=== PATIENT | male | born 1935 | race Caucasian/White ===

== ENCOUNTER 2021-11-03 20:08 | Emergency (ER) | payer OTHER ==
[~2021-11-03] VITALS: Ht 182.9 cm; Wt 73.5 kg
[2021-11-03] MEDS ORDERED: FLOMAX0.4 MG PO (20:39)
[2021-11-03] MEDS ORDERED: LIPITOR10 MG PO (20:39)
[2021-11-03] MEDS ORDERED: LISINOPRIL20 MG PO (20:40)
[2021-11-03] MEDS ORDERED: PROSCAR 5MG TABL5 M1 PO (20:40)
[2021-11-03] MEDS ORDERED: HYDROXYZINE HCL10 M2 PO (20:41)
[2021-11-03 21:29] LABS: ABSOLUTE EOSINOPHILS 0.1 thou/uL (0.0-0.7); ABSOLUTE LYMPHOCYTES 1.4 thou/uL (0.8-5.3); ABSOLUTE MONOCYTES 0.5 thou/uL (0.0-1.2); ABSOLUTE NEUTROPHILS 5.6 thou/uL (1.6-8.1); BASOPHILS 0.3 %; HEMATOCRIT 39.2 % (42.0-52.0); HEMOGLOBIN 13.1 gm/dL (14.0-18.0); LYMPHOCYTES 18.4 %; MCH 33.4 pg (26.0-34.0); MCHC 33.5 g/dL (28.0-37.0); MCV 99.6 fL (80.0-100.0); MONOCYTES 6.2 %; MPV 8.2 fl. (7.2-11.1); NUCLEATED RBCS 0 /100WBC; PLATELET COUNT* 172 thou/uL (150-400); POLYS 74.1 %; RBC 3.94 mil/uL (4.50-6.00); WBC 7.6 thou/uL (4.0-11.0)
[2021-11-03 21:42] LABS: CALCIUM 8.9 mg/dL (8.5-10.1); POTASSIUM 3.7 mmol/L (3.5-5.1)
[2021-11-03 21:53] LABS: ALBUMIN 3.2 g/dL (3.4-5.0); MAGNESIUM 2.1 mg/dL (1.8-2.4); TOTAL BILIRUBIN 0.7 mg/dL (<0.1-1.0); TOTAL PROTEIN 7.1 g/dL (6.4-8.2)
[2021-11-03 22:56] LABS: URINE BILIRUBIN NEGATIVE (Negative); URINE BLOOD NEGATIVE (Negative); URINE CLARITY CLEAR; URINE COLOR YELLOW; URINE GLUCOSE-RANDOM NEGATIVE (Negative); URINE KETONES NEGATIVE (Negative); URINE LEUKOCYTES-REFLEX NEGATIVE (Negative); URINE NITRITE-REFLEX NEGATIVE (Negative); URINE PROTEIN NEGATIVE (Negative); URINE SPECIFIC GRAVITY 1.025 (1.005-1.030)
[2021-11-03 23:47] VITALS: BP 151/84
--- NOTE | 2021-11-04 09:32 | EKG ---
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: : [id number] Requested By: Tiffanie Vásquez Order Number: [id number] MD: Sandeep Felix Measurements Intervals [place] Rate: 74 P: 46 [place]: 137 QRS: -75 QRSD: 147 T: 61 QT: 458 QTc: 509 Interpretive Statements Sinus rhythm RBBB and LAFB Probable left ventricular hypertrophy No previous ECG available for comparison Electronically Signed On 11-04-2021 9:32:04 [employer]NAGER [employer] by Sandeep Felix [email or web address] <ELECTRONICALLY SIGNED> By: Lauren Felix MD, [facility] 11/04/2132 24 24 Lauren Felix MD, [facility] /EPI
== END 2021-11-03 23:50 | disposition home or self-care (01) ==
LOC: M.ERS 20:08
PROVIDERS: Emergency Medicine
DX: F41.9 Anxiety disorder, unspecified (principal); F32.9 Major depressive disorder, single episode, unspecified; F63.81 Intermittent explosive disorder; I10 Essential (primary) hypertension; E78.5 Hyperlipidemia, unspecified; Z79.899 Other long term (current) drug therapy